=== PATIENT | male | born 1970 | race Caucasian/White ===

== ENCOUNTER 2019-02-04 12:50 | Emergency (ER) | payer MEDICARE ==
[~2019-02-04] VITALS: Ht 185.4 cm; Wt 90.7 kg
[~2019-02-04 12:50] MED LIST: ADULT LOW DOSE81 MG PO; ASPIRIN325; CYMBALTA60 MG PO; DOLOPHINE HCL5 MG PO; LIORESAL 10 MG10 MG PO; LISINOPRIL2.5 MG PO; LISINOPRIL5 MG PO; NEURONTIN600 MG PO; PERCOCET 5-3251 EACH PO; SIMVASTATIN20 MG PO; TRAMADOL 50 MG50 MG PO; [UNRECOGNIZED DRUG - CODE] PO
[2019-02-04] MEDS ORDERED: KEFLEX500 M1 PO (13:50)
[2019-02-04 14:01] VITALS: BP 180/80
== END 2019-02-04 14:03 | disposition home or self-care (01) ==
LOC: M.ERS 12:50
DX: S61.412A Laceration without foreign body of left hand, initial encounter (principal); I10 Essential (primary) hypertension; F17.210 Nicotine dependence, cigarettes, uncomplicated; Z90.49 Acquired absence of other specified parts of digestive tract; Z86.73 Personal history of transient ischemic attack (TIA), and cerebral infarction without residual deficits; Z88.5 Allergy status to narcotic agent; Z88.6 Allergy status to analgesic agent; W26.8XXA Contact with other sharp object(s), not elsewhere classified, initial encounter; Y93.89 Activity, other specified; Y92.89 Other specified places as the place of occurrence of the external cause; Y99.0 Civilian activity done for income or pay

== ENCOUNTER 2019-02-28 09:49 | Inpatient (IN) | payer MEDICARE ==
[~2019-02-28] VITALS: Ht 185.4 cm; Wt 97.1 kg
[2019-02-28] VITALS (33 sets, daily range): BP systolic 106–194; BP diastolic 71–154
[~2019-02-28 09:49] MED LIST changes: +KEFLEX500 M1 PO
[2019-02-28] MEDS ORDERED: NOHOMEMEDICATIONS (09:59)
[2019-02-28 10:19] LABS: ABSOLUTE BASOPHILS 0.1 thou/uL (0.0-0.2); ABSOLUTE EOSINOPHILS 0.2 thou/uL (0.0-0.7); ABSOLUTE LYMPHOCYTES 1.1 thou/uL (0.8-5.3); ABSOLUTE MONOCYTES 0.7 thou/uL (0.0-1.2); ABSOLUTE NEUTROPHILS 7.8 thou/uL (1.6-8.1); BASOPHILS 0.6 %; EOSINOPHILS 2.3 %; HEMATOCRIT 42.5 % (42.0-52.0); HEMOGLOBIN 14.4 gm/dL (14.0-18.0); LYMPHOCYTES 10.7 %; MCH 32.2 pg (26.0-34.0); MCHC 33.8 g/dL (28.0-37.0); MCV 95.3 fL (80.0-100.0); MONOCYTES 7.3 %; MPV 9.5 fl. (7.2-11.1); NUCLEATED RBCS 0 /100WBC; PLATELET COUNT* 245 thou/uL (150-400); POLYS 79.1 %; RBC 4.46 mil/uL (4.50-6.00); RDW-CV 13.8 % (10.5-14.5); WBC 9.8 thou/uL (4.0-11.0)
[2019-02-28 10:31] LABS: CREATININE 1.3 mg/dL (0.6-1.3); POTASSIUM 3.8 mmol/L (3.5-5.1)
[2019-02-28 10:34] LABS: APTT 26.1 Seconds (25.0-31.3); PROTIME 10.4 Seconds (9.20-11.50)
[2019-02-28 10:46] LABS: ALBUMIN 3.6 g/dL (3.4-5.0); TOTAL BILIRUBIN 0.8 mg/dL (<0.1-1.0); TOTAL PROTEIN 6.9 g/dL (6.4-8.2); TROPONIN-I LEVEL 0.1 ng/mL (<0.06)
[2019-02-28 11:52] LABS: BE -0.3 mmol/L (-2 to +3); PCO2 39.4 mmHg (35.0-45.0); PO2 60.4 mmHg (75.0-100.0); pH 7.406 (7.340-7.450)
[2019-02-28 16:40] LABS: AMP/METHAMP POSITIVE (Negative); BARBITURATES Negative (Negative); BENZODIAZEPINES Negative (Negative); COCAINE Negative (Negative); METHADONE Negative (Negative); OPIATES Negative (Negative); PCP Negative (Negative); THC POSITIVE (Negative)
[2019-02-28 20:39] LABS: BE 2.1 mmol/L (-2 to +3); PO2 72.3 mmHg (75.0-100.0)
[2019-03-01] VITALS (46 sets, daily range): BP systolic 85–138; BP diastolic 51–108
[2019-03-01 03:43] LABS: HEMATOCRIT 42.9 % (42.0-52.0); HEMOGLOBIN 14.1 gm/dL (14.0-18.0); MCH 31.5 pg (26.0-34.0); MCV 95.6 fL (80.0-100.0); MPV 9.8 fl. (7.2-11.1); RBC 4.49 mil/uL (4.50-6.00); WBC 13.1 thou/uL (4.0-11.0)
[2019-03-01 03:57] LABS: ALBUMIN 3.1 g/dL (3.4-5.0); CALCIUM 8.1 mg/dL (8.5-10.1); CREATININE 1.3 mg/dL (0.6-1.3); POTASSIUM 3.7 mmol/L (3.5-5.1); TOTAL BILIRUBIN 0.9 mg/dL (<0.1-1.0); TOTAL PROTEIN 6.4 g/dL (6.4-8.2)
[2019-03-01 06:17] LABS: PO2 65.6 mmHg (75.0-100.0); pH 7.449 (7.340-7.450)
--- NOTE | 2019-03-01 08:26 | CON ---
[facility] [address] [place] [address] CONSULTATION Name: JOEY VALLE Room: [address] IN .R.#: [id number] Admission: 02/28/19 Attend Phys: Alyse Baeza Discharge: Date of : 68 Report #: [id number] THIS REPORT FOR: //name// CC: MEE physician/PCP Tera Cabezas DATE OF SERVICE: 02/28/2019 CARDIOLOGY CONSULTATION HISTORY OF PRESENT ILLNESS: The patient is a 49-year-old single white male who I was asked to see in the Emergency Room today after he complained of being short of breath. The patient has a history of hypertension but has not taken his medications for the past year. He is not very active at this time and is on disability because of previous stroke. He lives in [place], [place], by himself. Recently, he has had increasing shortness of breath and a cough. Denied any chest pain, palpitation, syncope or edema. He was at a laundromat earlier today and he became more short of breath. Paramedics were called. He was brought here to [facility] by ambulance. I was asked to see him for further evaluation and treatment. PAST MEDICAL HISTORY: Significant for cholecystectomy. He has a history of hypertension. MEDICATIONS: Currently he is on no medications. ALLERGIES: HE HAS A PREVIOUS INTOLERANCE TO HYDROCODONE. SOCIAL HISTORY: Smokes half a pack of cigarettes a day. No alcohol abuse. He is from his . REVIEW OF SYSTEMS: He apparently has had a previous stroke in 2008 with residual right-sided weakness. He has no history of peptic ulcer disease, liver disease, kidney disease, cancer, psychiatric illness, chronic skin condition. PHYSICAL EXAMINATION: GENERAL: Revealed a middle-aged male, appeared in moderate respiratory distress. VITAL SIGNS: He had a blood pressure of 170/110. His pulse was 100. He is afebrile. HEENT: He was anicteric. Conjunctivae pink. Mucous membranes moist. NECK: Neck veins appear mildly distended. Neck was supple. CHEST: Reveals coarse breath sounds bilaterally. CARDIOVASCULAR: Regular rate and rhythm. No significant murmur. ABDOMEN: Soft. EXTREMITIES: Had no pitting edema. Posterior tibial pulse 2+ [place] [address] CONSULTATION Name: JOEY VALLE Room: [address]#: [id number] Admission: 02/28/19 Attend Phys: Alyse Baeza Discharge: Date of : 68 Report #: [id number] SKIN: Warm and dry. NEUROLOGIC: Nonfocal. RADIOLOGICAL DATA: His ECG on admission shows a sinus tachycardia, biatrial enlargement, left ventricular hypertrophy, repolarization changes. Workup in the Emergency Room today, he had portable chest x-ray that showed cardiomegaly, vascular congestion, basilar infiltrates. No pleural effusion. LABORATORY WORK: Sodium 142, BUN 21, creatinine 1.3, glucose 117. Liver function studies are normal. Troponin 0.1. BNP 4068. White blood cell count 9.8, hemoglobin 14.4. IMPRESSION AND RECOMMENDATIONS: 1. Pulmonary edema. Recommend Lasix. Apparently, the patient is going to require intubation. I would check echocardiogram. 2. Left ventricular hypertrophy. The patient has not been taking medications. 3. Chronic obstructive pulmonary disease. 4. Tobacco abuse. 5. Previous stroke with residual right-sided weakness. <ELECTRONICALLY SIGNED> By: Angel Bustamante MD, FACC 03/01/19 0826 1128 [id number] Bustamante MD, FACC /nt
--- NOTE | 2019-03-01 15:49 | 2DMMODE ---
[place] [address] 2 D/M-MODE ECHOCARDIOGRAM Name: JOEY VALLE Room: 002[facility] IN [facility]#: [id number] Admission: 02/28/19 Attend Phys: Tera Cabezas Discharge: Date of : 68 Date of Service: 03/01/19 1549 Report #: [id number] THIS REPORT FOR: //name// APPROVED REPORT Study performed: 03/01/2019 10:29:39 EXAM: Comprehensive 2D, Doppler, and color-flow Echocardiogram Patient Location: In-Patient Room #: 002 Status: routine BSA: 2.11 HR: 94 bpm BP: 119/81 mmHg Rhythm: NSR Other Information Study Quality: Good Indications Cardiomegaly 2D Dimensions IVSd: 16.45 (7-11mm) LVOT Diam: 23.85 (18-24mm) LVDd: 62.12 mm PWd: 14.66 (7-11mm) Ascending Ao: 41.06 (22-36mm) LVDs: 57.36 (25-40mm) Aortic Root: 39.78 mm Volumes Left Atrial Volume (Systole) LA ESV Index: 39.20 mL/m2 Aortic Valve AoV Peak Nomi.: 1.14 m/s AO Peak Gr.: 5.22 mmHg LVOT Max P.87 mmHg AO Mean Gr.: 3.43 mmHg LVOT Mean P.46 mmHg LVOT Max V: 0.85 m/s AO V2 VTI: 17.38 cm LVOT Mean V: 0.55 m/s OLEG (VTI): 3.86 cm2 LVOT V1 VTI: 15.01 cm Mitral Valve E/A Ratio: 1.69 MV Decel. Time: 97.65 ms MV E Max Nomi.: 1.00 m/[place] [address] 2 D/M-MODE ECHOCARDIOGRAM Name: JOEY VALLE Room: [address] IN ..#: [id number] Admission: 02/28/19 Attend Phys: Tera Cabezas Discharge: Date of : 68 Date of Service: 03/01/19 1549 Report #: [id number] PHT: 28.32 ms MVA (PHT): 7.77 cm2 TDI E/Lateral E': 20.00 E/Medial E': 20.00 Medial E' Nomi.: 0.05 m/s Lateral E' Nomi.: 0.05 m/s Left Ventricle Left ventricle is moderately dilated. There is severe global hypokinesis of the left ventricle. Moderate concentric left ventricular hypertrophy. Left ventricular systolic function is severely decreased. LVEF is 25-30%. Transmitral Doppler flow pattern suggests impaired LV relaxation. Right Ventricle Right ventricle is mildly dilated. The right ventricular systolic function is normal. Atria Left atrium is mildly dilated. Right atrium is mildly dilated. Aortic Valve The aortic valve is normal in structure. Trace aortic regurgitation. There is no aortic valvular stenosis. Mitral Valve The mitral valve is normal in structure. Trace mitral regurgitation. No evidence of mitral valve stenosis. Tricuspid Valve The tricuspid valve is normal in structure. Unable to assess PA pressure. Trace tricuspid regurgitation. Pulmonic Valve The pulmonary valve is normal in structure. There is no pulmonic valvular regurgitation. Great Vessels Aortic root is mildly dilated. IVC is normal in size and collapses >50% with inspiration. Pericardium There is no pericardial effusion. [place] [address] 2 D/M-MODE ECHOCARDIOGRAM Name: JOEY VALLE Room: [address] IN [facility]#: [id number] Admission: 02/28/19 Attend Phys: Tera Cabezas Discharge: Date of : 68 Date of Service: 03/01/19 1549 Report #: [id number] <Conclusion> Left ventricle is moderately dilated. Moderate concentric left ventricular hypertrophy. Left ventricular systolic function is severely decreased. LVEF is 25-30%. Transmitral Doppler flow pattern suggests impaired LV relaxation. There is severe global hypokinesis of the left ventricle. Right ventricle is mildly dilated. Left atrium is mildly dilated. Right atrium is mildly dilated. Trace aortic regurgitation. Trace mitral regurgitation. Trace tricuspid regurgitation. Left pleural effusion. Aortic root is mildly dilated. <ELECTRONICALLY SIGNED> By: Gustavo Shaver MD, FACC 03/01/19 1549 1549 1549 Gustavo Shaver MD, FACC /INF
--- NOTE | 2019-03-01 16:11 | EKG ---
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 03/01/19 1610 0 Joey Curtis MD, FACC /EPI
--- NOTE | 2019-03-01 16:22 | EKG ---
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1970 Requested By: Tera Cabezas Order Number: [id number] MD: Joey Curtis Measurements Intervals [place] Rate: 89 P: 58 [place]: 142 QRS: 41 QRSD: 108 T: 138 QT: 400 QTc: 487 Interpretive Statements Sinus rhythm Left atrial enlargement LVH with secondary repolarization abnormality Borderline prolonged QT interval No previous ECG available for comparison Electronically Signed On 03-01-2019 16:22:32 CDT by Joey Curtis [email or web address] <ELECTRONICALLY SIGNED> By: Joey Curtis MD, [facility] 03/01/19 1622 845 5 Joey Curtis MD, FACC /EPI
[2019-03-01 17:06] LABS: BF RBC 12722 /mm3; TOTAL CELL COUNT 1012 /mm3
[2019-03-01 17:55] LABS: CLARITY SLIGHTLY HAZY; TOTAL VOLUME 1150 ml
[2019-03-01 18:01] LABS: BF EOSINOPHILS 2 %; BF LYMPHOCYTES 77 %; BF MONOCYTES 13 %; BF POLYS 8 %; BF TISSUE 7 /100 WBC; SOURCE THORACENTESIS
[2019-03-02] VITALS (34 sets, daily range): BP systolic 101–143; BP diastolic 68–105
[2019-03-02 04:08] LABS: HEMATOCRIT 42.2 % (42.0-52.0); MCH 31.5 pg (26.0-34.0); MCHC 33.3 g/dL (28.0-37.0); MCV 94.8 fL (80.0-100.0); MPV 9.8 fl. (7.2-11.1); NUCLEATED RBCS 0 /100WBC; PLATELET COUNT* 255 thou/uL (150-400); RBC 4.45 mil/uL (4.50-6.00); RDW-CV 14.3 % (10.5-14.5); WBC 21.1 thou/uL (4.0-11.0)
[2019-03-02 04:23] LABS: CALCIUM 7.4 mg/dL (8.5-10.1); CREATININE 2.1 mg/dL (0.6-1.3); POTASSIUM 4.2 mmol/L (3.5-5.1); TOTAL BILIRUBIN 0.9 mg/dL (<0.1-1.0); TOTAL PROTEIN 6.2 g/dL (6.4-8.2)
[2019-03-02 05:36] LABS: ABSOLUTE LYMPHOCYTES 0.6 thou/uL (0.8-5.3); ABSOLUTE MONOCYTES 0.2 thou/uL (0.0-1.2); ABSOLUTE NEUTROPHILS 20.3 thou/uL (1.6-8.1); PLATELET ESTIMATE ADEQUATE
[2019-03-02 05:37] LABS: ANISOCYTOSIS 1+; POIKILOCYTOSIS 1+
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
[2019-03-02 15:33] LABS: BE 0.2 mmol/L (-2 to +3); PCO2 33.4 mmHg (35.0-45.0); PO2 99.6 mmHg (75.0-100.0); pH 7.461 (7.340-7.450)
[2019-03-03] VITALS (14 sets, daily range): BP systolic 114–142; BP diastolic 70–99
[2019-03-03 04:42] LABS: ABSOLUTE LYMPHOCYTES 0.5 thou/uL (0.8-5.3); ABSOLUTE MONOCYTES 1.3 thou/uL (0.0-1.2); ABSOLUTE NEUTROPHILS 21.1 thou/uL (1.6-8.1); BASOPHILS 0.1 %; HEMATOCRIT 40.1 % (42.0-52.0); HEMOGLOBIN 13.2 gm/dL (14.0-18.0); LYMPHOCYTES 2.2 %; MCH 31.6 pg (26.0-34.0); MCV 95.9 fL (80.0-100.0); MONOCYTES 5.8 %; MPV 10.6 fl. (7.2-11.1); NUCLEATED RBCS 0 /100WBC; PLATELET COUNT* 221 thou/uL (150-400); POLYS 91.9 %; RBC 4.18 mil/uL (4.50-6.00); RDW-CV 14.4 % (10.5-14.5); WBC 22.9 thou/uL (4.0-11.0)
[2019-03-03 05:02] LABS: ALBUMIN 2.8 g/dL (3.4-5.0); CALCIUM 7.4 mg/dL (8.5-10.1); CREATININE 1.7 mg/dL (0.6-1.3); TOTAL BILIRUBIN 0.8 mg/dL (<0.1-1.0); TOTAL PROTEIN 5.8 g/dL (6.4-8.2)
[2019-03-03 07:12] LABS: URINE BILIRUBIN NEGATIVE (Negative); URINE BLOOD NEGATIVE (Negative); URINE CLARITY CLEAR; URINE COLOR DARK YELLOW; URINE GLUCOSE-RANDOM NEGATIVE (Negative); URINE KETONES NEGATIVE (Negative); URINE LEUKOCYTES NEGATIVE (Negative); URINE NITRITE NEGATIVE (Negative); URINE PROTEIN NEGATIVE (Negative); URINE SPECIFIC GRAVITY 1.025 (1.005-1.030); URINE UROBILINOGEN 0.2 E.U./dl (0.2-1.0)
[2019-03-03 15:10] LABS: BODY FLUID LDH 122 IU/L (()); BODY FLUID PROTEIN 1.7 g/dL (())
[2019-03-04 00:08] VITALS: BP 129/97
[2019-03-04 04:00] VITALS: BP 123/90
[2019-03-04 04:08] LABS: ABSOLUTE LYMPHOCYTES 2.2 thou/uL (0.8-5.3); ABSOLUTE MONOCYTES 1.6 thou/uL (0.0-1.2); ABSOLUTE NEUTROPHILS 11.5 thou/uL (1.6-8.1); BASOPHILS 0.3 %; EOSINOPHILS 0.1 %; HEMATOCRIT 40.6 % (42.0-52.0); HEMOGLOBIN 13.4 gm/dL (14.0-18.0); LYMPHOCYTES 14.1 %; MCH 31.7 pg (26.0-34.0); MCV 95.9 fL (80.0-100.0); MONOCYTES 10.7 %; MPV 9.7 fl. (7.2-11.1); NUCLEATED RBCS 0 /100WBC; PLATELET COUNT* 182 thou/uL (150-400); POLYS 74.8 %; RBC 4.23 mil/uL (4.50-6.00); RDW-CV 13.8 % (10.5-14.5); WBC 15.4 thou/uL (4.0-11.0)
[2019-03-04 04:32] LABS: ANION GAP 5 mmol/L (7-16); BUN 48 mg/dL (7-18); CALCIUM 7.8 mg/dL (8.5-10.1); CHLORIDE 105 mmol/L (98-107); CHOLESTEROL 171 mg/dL (<200); CO2 31 mmol/L (21-32); CREATININE 1.3 mg/dL (0.6-1.3); GLUCOSE 89 mg/dL (70-99); HDL CHOLESTEROL 32 mg/dL (>40); LDL CHOLESTEROL 115 mg/dL (<100); POTASSIUM 3.7 mmol/L (3.5-5.1); SODIUM 141 mmol/L (136-145); TC:HDL 5.3 Ratio (Not establshd); TRIGLYCERIDE 120 mg/dL (<150); VLDL 24 mg/dL (<40)
[2019-03-04 04:35] LABS: SERUM ASSESSMENT Clear
[2019-03-04 08:00] VITALS: BP 126/93
--- NOTE | 2019-03-04 08:07 | PATH ---
[address] [address] PATHOLOGY RPT PROCEDURE Name: JOEY VALLE Room: [address] IN [facility]#: [id number] Admission: 02/28/19 Date of : 68 Discharge: Report #: [id number] Path Case #: [id number] Note [facility] Accession Number: [id number] TESTS RESULT FLAG UNITS REF RANGE LAB Clinician Provided Cytology Information No. of containers..01 Other (Miscellaneous) Source: LT PLEURAL FLUID Clinician ICD10: 01 J96.00 DIAGNOSIS: LT PLEURAL FLUID NEGATIVE FOR MALIGNANT CELLS. ABUNDANT REACTIVE MESOTHELIAL CELLS AND FEW INFLAMMATORY CELLS. THIS INTERPRETATION INCLUDES EVALUATION OF A CELL BLOCK. Signed out by: Traci Coulter MD, Pathologist NPI- [id number] Performed by: Jonel Coates, [employer] [place] ([facility]) Gross description: 01 45 ML, ORANGE, CLOUDY /LCS FLAG LEGEND: L-Low Normal,H-High Normal,LL-Alert Low,HH-Alert High <-Panic Low,>-Panic High,A-Abnormal,AA-Critical Abnormal Performed at: [address] [place] [address] Jf Motley MD, [address] [place] [id number] Aleks Coulter MD, Specimen Comment: A courtesy copy of this report has been sent to Specimen Comment: [phone], . Specimen Comment: Report sent to / DR YU Performed at: [address], [place], [place] [id number] MD Jf Motley MD Phone: [phone]
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
[2019-03-04 12:00] VITALS: BP 136/99
[2019-03-04 16:00] VITALS: BP 157/116
--- NOTE | 2019-03-04 17:15 | CARDNUC ---
[place] [address] CARDIAC NUCLEAR IMAGING REPORT Name: JOEY VALLE Room: [address] IN [facility]#: [id number] Admission: 02/28/19 Attend Phys: Tera Cabezas Discharge: Date of : 68 Date of Service: 03/04/19 1715 Report #: [id number] THIS REPORT FOR: //name// APPROVED REPORT Study performed: 03/03/2019 15:21:00 Indication: Dyspnea Patient Location: In-Patient Room #: icu Stress Tech: Bianka Ortega Stress Nurse: Priscilla Abernathy RN Ht: 6 ft 1 in Wt: 208 lbs BSA: 2.19 m2 BMI: 27.43 Medical History Medical History: hypertension, cva Allergies: hydrocodone, acetominophen Cardiac Risk Factors: age, hypertension, tobacco, family hx Exercise History: Sedentary Meds Held (24 hrs): metoprolol Resting Data Rest SPECT myocardial perfusion imaging was performed in supine position 30 minutes following the intravenous injection of 11.2 mCi of Tc-99m Sestamibi. Time of rest injection: 11:30 The images were gated to evaluate regional wall motion and calculate left ventricular ejection fraction. Administration Route: IV Administration Site: Other Pharmacologic Stress Pharmacologic stress test was performed by injecting Regadenoson 0.4 mg IV push over 10-15 seconds immediately followed by the intravenous injection of 33.3 mCi of Tc-99m Sestamibi. Time of stress injection: 1335 Administration Route: IV Administration Site: Other Heart Rate at time of stress injection: 113 bpm. Gated Stress SPECT was performed 40 minutes after stress injection. The images were gated to evaluate regional wall motion and calculate left [place] [address] CARDIAC NUCLEAR IMAGING REPORT Name: JOEY VALLE Room: [address]#: [id number] Admission: 02/28/19 Attend Phys: Tera Cabezas Discharge: Date of : 68 Date of Service: 03/04/19 1715 Report #: [id number] Stress Test Details Stress Test: Pharmacologic stress testing performed using 0.4 mg of regadenoson per 5 mL given IV over 10 seconds. Reason for pharmacologic stress test: physical limitation. HR Max Heart Rate (APMHR): 170 bpm Resting HR: 93 bpm Target HR (85% APMHR): 144 bpm Max HR Achieved: 113 bpm % of APMHR: 66 Recovery HR: 103 bpm BP Resting BP: 156/103 mmHg Max BP: 176/106 mmHg Recovery BP: 165/114 mmHg ECG Resting ECG: Sinus Rhythm, LVH with repolarization changes Stress ECG: Sinus Rhythm, LVH with repolarization changes ST Change: None Arrhythmia: None Recovery ECG: Sinus Rhythm, LVH with repolarization changes Recovery ST Change: None Recovery Arrhythmia: None Clinical Reason for Termination: Completed protocol The patient tolerated Lexiscan infusion without significant cardiac symptoms. Stress ECG Conclusion The baseline 12-lead EKG shows left particular hypertrophy with repolarization abnormalities. EKGs obtained during and post Lexiscan infusion show sinus rhythm with no significant ST or T wave changes when compared to baseline. There were no stress-induced arrhythmias. Study Quality Study: Good Artifact: Moderate Diaphragmatic artifact Study Data At rest, the left ventricular ejection fraction was 20%.. [place] [address] CARDIAC NUCLEAR IMAGING REPORT Name: JOEY VALLE Room: [address] IN [facility]#: [id number] Admission: 02/28/19 Attend Phys: Tera Cabezas Discharge: Date of : 68 Date of Service: 03/04/19 1715 Report #: [id number] Post stress, the left ventricular ejection was 20%.. TID = 1.02. Perfusion Perfusion images show a large defect of the inferior wall on both rest and stress images. No reversible defects are identified. Wall Motion There is severe global hypokinesis. The left ventricle appears dilated. Nuclear Conclusion ECG Findings: non-diagnostic Clinical Findings: negative for ischemia Nuclear Findings: negative for ischemia Exercise Capacity: not assessed Left Ventricular Function: abnormal Risk Study: high Perfusion images show a fixed defect in the inferior wall. This could either be due to diaphragmatic attenuation artifact or prior inferior infarct. Based on the lack of Q waves on EKG I suspect this defect is related to diaphragmatic attenuation. These findings are consistent with a cardiomyopathy likely nonischemic in origin. This is a high risk study based on severe LV systolic dysfunction. <Conclusion> The baseline 12-lead EKG shows left particular hypertrophy with repolarization abnormalities. EKGs obtained during and post Lexiscan infusion show sinus rhythm with no significant ST or T wave changes when compared to baseline. There were no stress-induced arrhythmias. <ELECTRONICALLY SIGNED> By: Gustavo Shaver MD, FACC 03/04/19 1715 171 1715 Gustavo Shaver MD, FACC /INF
[2019-03-04 20:00] VITALS: BP 124/84
[2019-03-05 04:00] VITALS: BP 129/92
[2019-03-05 04:08] LABS: ABSOLUTE EOSINOPHILS 0.1 thou/uL (0.0-0.7); ABSOLUTE LYMPHOCYTES 2.1 thou/uL (0.8-5.3); ABSOLUTE MONOCYTES 1.4 thou/uL (0.0-1.2); ABSOLUTE NEUTROPHILS 9.3 thou/uL (1.6-8.1); BASOPHILS 0.2 %; EOSINOPHILS 1.1 %; HEMATOCRIT 40.4 % (42.0-52.0); HEMOGLOBIN 13.5 gm/dL (14.0-18.0); LYMPHOCYTES 16.2 %; MCH 31.9 pg (26.0-34.0); MCHC 33.4 g/dL (28.0-37.0); MCV 95.6 fL (80.0-100.0); MPV 10.6 fl. (7.2-11.1); NUCLEATED RBCS 0 /100WBC; PLATELET COUNT* 183 thou/uL (150-400); POLYS 71.5 %; RBC 4.23 mil/uL (4.50-6.00); RDW-CV 13.9 % (10.5-14.5); WBC 13.1 thou/uL (4.0-11.0)
[2019-03-05 04:28] LABS: CALCIUM 7.6 mg/dL (8.5-10.1); CREATININE 1.1 mg/dL (0.6-1.3); POTASSIUM 3.7 mmol/L (3.5-5.1)
[2019-03-05] MEDS ORDERED: AUGMENTIN 875-1 EACH PO (12:24)
[2019-03-05] MEDS ORDERED: CARVEDILOL12.5 MG PO (12:26)
[2019-03-05] MEDS ORDERED: SPIRONOLACTONE25 M1 PO (12:26)
[2019-03-05] MEDS ORDERED: COZAAR 25 MG TA25 MG PO (12:28)
[2019-03-05] MEDS ORDERED: LASIX 20 MG TAB20 MG PO (12:29)
[2019-03-06 11:50] LABS: SOURCE PLEURAL
== END 2019-03-05 13:40 | disposition home or self-care (01) | DRG 208 ==
LOC: M.ERS 09:49 → M.ICU 12:07 → M.TBA-ER 12:07 → M.ICU 12:50 → M.2W 03-05 05:47
PROVIDERS: Family Medicine; Internal Medicine; Internal Medicine Nephrology; Internal Medicine Pulmonary Disease; ADMIT Internal Medicine
PROC: 5A1945Z Respiratory Ventilation, 24-96 Consecutive Hours (ICD-10-PCS; principal; 2019-02-28)
PROC: 02HV33Z Insertion of Infusion Device into Superior Vena Cava, Percutaneous Approach (ICD-10-PCS; principal; 2019-02-28)
PROC: 0BH17EZ Insertion of Endotracheal Airway into Trachea, Via Natural or Artificial Opening (ICD-10-PCS; principal; 2019-02-28)
PROC: 0W9B3ZZ Drainage of Left Pleural Cavity, Percutaneous Approach (ICD-10-PCS; 2019-03-02)
DX: J96.01 Acute respiratory failure with hypoxia (principal); J69.0 Pneumonitis due to inhalation of food and vomit; I50.43 Acute on chronic combined systolic (congestive) and diastolic (congestive) heart failure; J90 Pleural effusion, not elsewhere classified; I69.351 Hemiplegia and hemiparesis following cerebral infarction affecting right dominant side; N17.9 Acute kidney failure, unspecified; I42.9 Cardiomyopathy, unspecified; J98.11 Atelectasis; K59.00 Constipation, unspecified; I11.0 Hypertensive heart disease with heart failure; J44.9 Chronic obstructive pulmonary disease, unspecified; R79.89 Other specified abnormal findings of blood chemistry; F12.10 Cannabis abuse, uncomplicated; F15.10 Other stimulant abuse, uncomplicated; F17.210 Nicotine dependence, cigarettes, uncomplicated; Z90.49 Acquired absence of other specified parts of digestive tract; Z87.828 Personal history of other (healed) physical injury and trauma; Z79.899 Other long term (current) drug therapy; Z88.8 Allergy status to other drugs, medicaments and biological substances

== ENCOUNTER 2019-06-15 14:03 | Inpatient (IN) | payer MEDICARE ==
[~2019-06-15] VITALS: Ht 182.9 cm; Wt 82.5 kg
[2019-06-15] VITALS (9 sets, daily range): BP systolic 146–205; BP diastolic 87–127
[~2019-06-15 14:03] MED LIST changes: +AUGMENTIN 875-1 EACH PO; +CARVEDILOL12.5 MG PO; +COZAAR 25 MG TA25 MG PO; +LASIX 20 MG TAB20 MG PO; +NOHOMEMEDICATIONS; +SPIRONOLACTONE25 M1 PO
[2019-06-15 14:57] LABS: HEMATOCRIT 42.3 % (42.0-52.0); HEMOGLOBIN 14.4 gm/dL (14.0-18.0); MCH 31.6 pg (26.0-34.0); MCV 93.1 fL (80.0-100.0); MPV 9.6 fl. (7.2-11.1); RBC 4.55 mil/uL (4.50-6.00); RDW-CV 14.4 % (10.5-14.5); WBC 7.7 thou/uL (4.0-11.0)
[2019-06-15 15:04] LABS: CALCIUM 8.3 mg/dL (8.5-10.1); CREATININE 1.1 mg/dL (0.6-1.3); POTASSIUM 3.3 mmol/L (3.5-5.1)
[2019-06-15 15:09] LABS: ALBUMIN 3.5 g/dL (3.4-5.0); TOTAL BILIRUBIN 0.4 mg/dL (<0.1-1.0); TOTAL PROTEIN 6.9 g/dL (6.4-8.2)
[2019-06-15 15:10] LABS: APTT 26.4 Seconds (25.0-31.3); INR 1.1; PROTIME 11.1 Seconds (9.20-11.50)
--- NOTE | 2019-06-15 15:29 | EKG ---
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 <ELECTRONICALLY SIGNED> By: Joey Curtis MD, FAC 06/15/19 1528 1446 1446 Joey Curtis MD, [facility] /EPI
--- NOTE | 2019-06-15 15:31 | NUR ---
REPORT GIVEN TO JOEY CHAPA, PT WILL BE TAKEN TO ICU 7, VSS, BELONGINGS WITH PT, FAMILY AT BEDSIDE, ALL INTERVENTIONS, MEDICATIONS AND VITAL SIGNS DOCUMENTED ON STROKE SHEET.
[2019-06-15 16:42] LABS: CALCIUM 8.9 mg/dL (8.5-10.1); CREATININE 1.2 mg/dL (0.6-1.3); MAGNESIUM 1.9 mg/dL (1.8-2.4); POTASSIUM 3.3 mmol/L (3.5-5.1)
[2019-06-15 18:20] LABS: AMP/METHAMP Negative (Negative); BARBITURATES Negative (Negative); BENZODIAZEPINES Negative (Negative); COCAINE Negative (Negative); METHADONE Negative (Negative); OPIATES Negative (Negative); PCP Negative (Negative); THC POSITIVE (Negative)
--- NOTE | 2019-06-15 19:07 | NUR ---
PT PASSED BEDSIDE SWALLOW EVALUATION, STARTED ON HEART HEALTHY DIET. PT REFUSES SCDS.
[2019-06-16] VITALS (15 sets, daily range): BP systolic 137–170; BP diastolic 81–118
--- NOTE | 2019-06-16 01:47 | NUR ---
RECEIVED REPORT AND ASSUMED CARE AT 1900. BP ELEVATED, OK PER NEURO. OTHERWISE VSS. ICU MONITORING IN PLACE. NIH COMPLETED =10. ASSESSMENT COMPLETED CHARTED. PT REPORTS HEADACHE, PRN MEDICATION PER ORDERS. BED LOCKED IN LOWEST POSITION, CALL LIGHT WITHIN REACH. DISCUSSED PLAN OF CARE WITH PT, VERBALIZED UNDERSTANDING.
[2019-06-16 03:42] LABS: ABSOLUTE BASOPHILS 0.1 thou/uL (0.0-0.2); ABSOLUTE EOSINOPHILS 0.4 thou/uL (0.0-0.7); ABSOLUTE LYMPHOCYTES 2.1 thou/uL (0.8-5.3); ABSOLUTE MONOCYTES 0.8 thou/uL (0.0-1.2); ABSOLUTE NEUTROPHILS 4.5 thou/uL (1.6-8.1); BASOPHILS 1.2 %; EOSINOPHILS 4.7 %; HEMOGLOBIN 13.6 gm/dL (14.0-18.0); LYMPHOCYTES 27.3 %; MCH 31.3 pg (26.0-34.0); MCV 92.1 fL (80.0-100.0); MONOCYTES 9.8 %; MPV 9.5 fl. (7.2-11.1); NUCLEATED RBCS 0 /100WBC; PLATELET COUNT* 221 thou/uL (150-400); RBC 4.34 mil/uL (4.50-6.00); WBC 7.9 thou/uL (4.0-11.0)
[2019-06-16 03:51] LABS: CALCIUM 8.6 mg/dL (8.5-10.1); CREATININE 1.1 mg/dL (0.6-1.3); MAGNESIUM 1.7 mg/dL (1.8-2.4); POTASSIUM 3.4 mmol/L (3.5-5.1)
--- NOTE | 2019-06-16 10:20 | NUR ---
INT. ROUNDS: PT ADMITTED WITH NEW CVA, HAD JUST RETURNED FROM [place]. MET JAYDON PT. STATES HE LIVES IN [place] BUT ONLY UNTIL THURSDAY 'MONEY RAN OUT.' PT HAD LIVED IN A TRAILER IN [place] WITH HIS STEP SON PRIOR LEFT THERE. STATED THERE WAS A SITUATION THAT PROMPTED HIM TO LEAVE, NOT ABLE TO RETURN. PT HAS FAMILY BUT STATES HASN'T BEEN IN TOUCH WITH ANYONE FOR >10YRS. DENIES HAVING A PLACE TO GO OTHER THAN '[place]RE[place] AFTER THURSDAY. PT USES [facility]. HAS NOT BEEN TO SNF OR HAD HH IN PAST. HAVE ASKED [facility] TO TALK WITH PT RE: POSSIBLE MEDICAID. DISCUSSED WITH PT POSSIBLE SNF PLACEMENT SHORT TERM IF QUALIFIES AN OPTION. WILL FOLLOW AND AWAIT ASSESSMENTS
[2019-06-16 11:07] LABS: LDL (DIRECT) CHOL 115 mg/dL (0-99)
--- NOTE | 2019-06-16 14:42 | NUR ---
REPORT GIVEN TO DIVYA CHAPA, PT TO TRANSFER TO 226
--- NOTE | 2019-06-16 16:36 | 2DMMODE ---
[place] [address] 2 D/M-MODE ECHOCARDIOGRAM Name: JOEY VALLE Room: [address] IN [facility]#: [id number] Admission: 06/15/19 Attend Phys: Prashanth Owen MD Discharge: Date of : 68 Date of Service: 06/16/19 1636 Report #: [id number] THIS REPORT FOR: //name// APPROVED REPORT Study performed: 06/16/2019 11:31:09 EXAM: Comprehensive 2D, Doppler, and color-flow Echocardiogram Patient Location: In-Patient Room #: 007 Status: routine BSA: 2.13 HR: 66 bpm BP: 147/95 mmHg Rhythm: NSR Other Information Study Quality: Good Indications CVA/TIA Echo Enhancing Agent Indication: Rule out Shunt Agent(s) / Amount(s) Used: Agitated Saline 10 cc 2D Dimensions IVSd: 14.00 (7-11mm) LVOT Diam: 21.03 (18-24mm) LVDd: 68.34 mm PWd: 13.18 (7-11mm) Ascending Ao: 41.25 (22-36mm) LVDs: 57.37 (25-40mm) Aortic Root: 38.67 mm Volumes Left Atrial Volume (Systole) LA ESV Index: 45.30 mL/m2 Aortic Valve AoV Peak Nomi.: 1.36 m/s AO Peak Gr.: 7.41 mmHg LVOT Max P.20 mmHg AO Mean Gr.: 4.60 mmHg LVOT Mean P.47 mmHg LVOT Max V: 1.14 m/s AO V2 VTI: 23.13 cm LVOT Mean V: 0.71 m/s OLEG (VTI): 3.03 cm2 LVOT V1 VTI: 20.14 [place] [address] 2 D/M-MODE ECHOCARDIOGRAM Name: JOEY VALLE Room: [address] IN ..#: [id number] Admission: 06/15/19 Attend Phys: Prashanth Owen MD Discharge: Date of : 68 Date of Service: 06/16/19 1636 Report #: [id number] Mitral Valve E/A Ratio: 1.56 MV Decel. Time: 240.35 ms MV E Max Nomi.: 0.97 m/s MV PHT: 69.70 ms MVA (PHT): 3.16 cm2 TDI E/Lateral E': 13.86 E/Medial E': 13.86 Medial E' Nomi.: 0.07 m/s Lateral E' Nomi.: 0.07 m/s Pulmonary Valve PV Peak Nomi.: 0.84 m/s PV Peak Gr.: 2.80 mmHg Tricuspid Valve RAP Estimate: 5.00 mmHg TR Peak Gr.: 23.17 mmHg RVSP: 28.00 mmHg PA Pressure: 28.00 mmHg Left Ventricle The left ventricle is normal size. There is global hypokinesis of the left ventricle. Mild concentric left ventricular hypertrophy. Left ventricular systolic function is severely decreased. LVEF is 20-25%. Grade IV - fixed restrictive diastolic dysfunction. Right Ventricle The right ventricle is normal size. The right ventricular systolic function is normal. Atria Left atrium is mildly dilated. Interatrial septum is intact without evidence of ASD or PFO. The right atrium size is normal. Aortic Valve The aortic valve is normal in structure. Trace aortic regurgitation. There is no aortic valvular stenosis. Mitral Valve The mitral valve is normal in structure. Mild mitral regurgitation. No evidence of mitral valve stenosis. Tricuspid Valve The tricuspid valve is normal in structure. Trace tricuspid regurgitation. No [place] [address] 2 D/M-MODE ECHOCARDIOGRAM Name: JOEY VALLE Room: [address] IN [facility]#: [id number] Admission: 06/15/19 Attend Phys: Prashanth Owen MD Discharge: Date of : 68 Date of Service: 06/16/19 1636 Report #: [id number] Pulmonic Valve The pulmonary valve is normal in structure. Trace pulmonic regurgitation. Great Vessels The aortic root is normal in size. IVC is normal in size and collapses >50% with inspiration. Pericardium There is no pericardial effusion. <Conclusion> LVEF is 20-25%. Grade IV - fixed restrictive diastolic dysfunction. The left ventricle is normal size. Mild concentric left ventricular hypertrophy. There is global hypokinesis of the left ventricle. Left ventricular systolic function is severely decreased. Trace aortic regurgitation. Mild mitral regurgitation. Trace tricuspid regurgitation. No pulmonary hypertension. Trace pulmonic regurgitation. IVC is normal in size and collapses >50% with inspiration. <ELECTRONICALLY SIGNED> By: Mohan Aquino MD, FACC 06/16/19 1636 1636 163 Mohan Aquino MD, FACC /INF
--- NOTE | 2019-06-16 19:46 | NUR ---
I ASSUMED CARE OF THE PATIENT AT 1445 AN ICU TRANSFER. HE IS UP WITH STAND BY ASSISTANCE. BED IS IN THE LOW LOCKED POSITION AND CALL LIGHT IS IN REACH. HOURLY ROUNDING WAS COMPLETED AND PATIENT NEEDS ARE MET. PAIN IS DENIED. CASE MANAGEMENT HAS BEEN CONTACTED. PATIENT LOST HIS TRAILER, THEN HIS HOTEL IN [place] AND IS NOW AT THE [facility] ON [address]. HE IS PAID UP THROUGH THURSDAY AND THEN WILL BE HOMELESS. [place] WILL COME SEE HIM ON 06/17/10. HE WAS AN ICU TRANSFER TODAY. PATIENT HAS A VERY FLAT AFFECT. NIH WAS COMPLETED. WILL CONTINUE TO MONITOR.
[2019-06-16 20:10] LABS: URINE BILIRUBIN NEGATIVE (Negative); URINE BLOOD NEGATIVE (Negative); URINE CLARITY CLEAR; URINE COLOR YELLOW; URINE GLUCOSE-RANDOM NEGATIVE (Negative); URINE KETONES NEGATIVE (Negative); URINE LEUKOCYTES NEGATIVE (Negative); URINE NITRITE NEGATIVE (Negative); URINE PROTEIN NEGATIVE (Negative); URINE SPECIFIC GRAVITY 1.025 (1.005-1.030)
[2019-06-17] VITALS: BP 150/99
[2019-06-17 04:00] VITALS: BP 155/105
[2019-06-17 04:22] LABS: CHOLESTEROL 144 mg/dL (<200); HDL CHOLESTEROL 32 mg/dL (>40); LDL CHOLESTEROL 100 mg/dL (<100); TC:HDL 4.5 Ratio (Not establshd); TRIGLYCERIDE 61 mg/dL (<150); VLDL 12 mg/dL (<40)
[2019-06-17 04:27] LABS: SERUM ASSESSMENT Clear
[2019-06-17 08:00] VITALS: BP 150/100
--- NOTE | 2019-06-17 10:23 | NUR ---
ASSUMED PT CARE AT 0800, AOX4, UP WITH ASSIST, USES URINAL. O2 SAT 90'S RA. TRACING SINUS FREDI ON TELE. PT COMPLAIN OF HEAD DISCOMFORT. PT NIH SCORE 5. STILL HAVE R SIDED WEAKNESS. AM ASSESSMENT CHARTED. MEDS GIVEN PER MAR. CALL LIGHT WITHIN REACH, HOURLY ROUNDING, WILL CONTINUE TO MONITOR.
[2019-06-17 12:00] VITALS: BP 149/102
--- NOTE | 2019-06-17 14:16 | NUR ---
Spoke with Pt regarding disposition, PT recommending skilled. Faxed referral to [facility]. Updated Shauna, liaison with [facility]. Awaiting decision to accept. Pt will be medically stable to dc tomorrow.
--- NOTE | 2019-06-17 15:38 | NUR ---
Shauna from [facility] here to assess Pt, during assessment, Pt voiced that he has thoughts of suicide sometimes, but no active plans. Per Shauna, she wants a psych consult prior to being able to accept him. Updated Dr and nurse, jarrett consult placed. CM waiting response from liaison as to if they can accept Pt over the weekend if psych consult comes back fine. Following.
[2019-06-17 19:50] VITALS: BP 140/91
[2019-06-18] VITALS: BP 165/94
[2019-06-18 02:10] LABS: GLYCOHEMOGLOBIN (HGB A1C) 5.2 % (4.8-5.6)
[2019-06-18 04:00] VITALS: BP 159/97
--- NOTE | 2019-06-18 04:31 | NUR ---
ASSUMED CARE OF PT AT 1900. PT IS ALERT AND ORIENTED. VSS. PERRLA. NO COMPLAINTS OF PAIN. NIH IS 8. PT IS IN SINUS RYTHM ON THE TELEMETRY. PT IS RESTING COMFORTABLY IN BED. RESPIRATIONS ARE EVEN AND NONLABORED. WILL CONTINUE TO MONITOR PT.
[2019-06-18 07:30] VITALS: BP 155/106
--- NOTE | 2019-06-18 11:41 | NUR ---
ASSUMED PT CARE ST 0800, AOX4, UP WITH ASSIST, O2 SAT 90'S RA. TRACING SINUS RHYTHM ON TELE. PT COMPLAINS OF HEADACHE. MEDS GIVEN. PT FOR TELEPSYCHE CONSULT. VSS, AM ASSESSMENT CHARTED, HOURLY ROUNDING, WILL CONTINUE TO MONITOR.
[2019-06-18 12:00] VITALS: BP 149/101
[2019-06-18 16:00] VITALS: BP 149/94
[2019-06-19] VITALS: BP 163/94
[2019-06-19 04:00] VITALS: BP 177/109
--- NOTE | 2019-06-19 04:50 | NUR ---
PT SLEPT MOST OF SHIFT. ASSESSMENT DOCUMENTED. LEWIS LOUISE PER E-AUG. IV PATENT. TYLENOL GIVEN FOR SHOULDER PAIN. PT HAD BM THIS SHIFT. PT UP WITH ONE TO BATHROOM. FALL PRECAUTIONS IN PLACE. WILL CONTINUE WITH PLAN OF CARE.
[2019-06-19 08:00] VITALS: BP 161/96
--- NOTE | 2019-06-19 13:42 | NUR ---
ASSUMED PT CARE AT 0800, AOX4, UP SBA, O2 SAT 90'S RA. TRACING SINUS RHYTHM, DENIES PAIN. PT GOAL TO FIND A SKILLED/REHAB PLACEMENT. VSS, AM ASSESSMENT CHARTED, MEDS GIVEN PER MAR, CALL LIGHT WITHIN REACH, WILL CONTINUE TO MONITOR.
[2019-06-19 16:02] VITALS: BP 164/98
[2019-06-20] VITALS (7 sets, daily range): BP systolic 154–166; BP diastolic 99–111
--- NOTE | 2019-06-20 05:28 | NUR ---
PT SLEPT MOST OF SHIFT. ASSESSMENT DOCUMENTED. MEDS GIVEN PER E-AUG. IV PATENT. NO REPORTS OF PAIN. FALL PRECAUTIONS IN PLACE. WILL CONTINUE WITH PLAN OF CARE.
--- NOTE | 2019-06-20 09:50 | NUR ---
ASSUMED CARE OF PT AT 0730. PT SITTING IN BED WAITING FOR BREAFKAST. A&0X4, COMPLAINS OF PAIN TO LEFT SHOULDER-TREATED WITH PRN TYLENOL WITH PARTIAL RELIEF. TRACING SB ON THE COOKER SULFITE. BLOOD PRESSURE ELEVATED THIS AM-160'S/100'S. LISINOPRIL INCREASED FROM 2.5MG TO 10MG PER DR CORNEJO AND CARDIOLOGY CONSULTED FOR ASSIST IN MEDICAL MANAGEMENT. NIH COMPLETED- PT SCORING 5, REFER TO CHARTING. ON RA SAT UPPER 90'S. DENIES ANY SHORTNESS OF BREATH. PT UP WITH 1 ASSIST AND CANE TO BATHROOM-RIGHT SIDED WEAKNESS NOTED. PT GOAL FOR TODAY IS BLOOD PRESSURE MANAGEMENT, CARDIOLOGY CONSULT, INCREASE ACTIVITY AND DISCHARGE PLANNING TO SNF. AM ASSESSMENT CHARTED. MEDICATIONS PER AUG. PT REPOSITIONS SELF. HOURLY ROUNDING OBSERVED. BED IN LOW POSITION. CALL LIGHT WITHIN REACH. WILL CONTINUE PLAN OF CARE.
--- NOTE | 2019-06-20 11:52 | NUR ---
CHIDI sent referrals to [facility] [phone] (fax). [phone] (f). And, [facility] [phone] (f). Laura rivera/Nolan Gannon called to stated they are unable to accept pt.
--- NOTE | 2019-06-20 15:27 | NUR ---
CM faxed skilled referrals to: [facility] p:[phone] f:[phone] [facility] p:[phone] [phone] [facility] p:[phone] f:[phone] [facility] p:[phone] f:[phone] [facility] [place] p:[phone] f:[phone] Awaiting decisions to accept. CM to continue looking for placement.
--- NOTE | 2019-06-20 17:24 | NUR ---
NO ACUTE CHANGES THROUGHOUT SHIFT. REFER TO CHARTING. CARDIOLOGY CONSULT IN PLACE FOR MEDICAL MANAGEMENT. DR HUTCHINSON HERE TO SEE PT. ORDERS RECEIVED TO DC LISINOPRIL, RESTART COZAAR AND DOSE INCREASED TO 50MG, SPIRINOLACTONE AND COREG DOSAGE DECREASED TO 3.125 MG BID. REFER TO EMAR. BLOOD PRESSURE IMPROVING THROUGHOUT SHIFT- NOW RUNNING IN THE 150'S/90'S. AWAITING SNF ACCEPTANCE. PT TO HAVE CXR TOMORROW 06/21. CONTINUES TO TRACE SB/SR ON THE DEHAIRER. ON RA SAT UPPER 90'S. PT DENIES ANY PAIN OR SHORTNESS OF BREATH THIS AFTERNOON. UP TO CHAIR FOR MEALS. WORKED WITH PT AND OT TODAY-TOLERATED WELL. NIH CHARTED. PROGRESSING TOWARDS GOALS. MEDICATIONS PER AUG. PT REPOSITIONS SELF. HOURLY ROUNDING OBSERVED. BED IN LOW POSITION. CALL LIGHT WITHIN REACH. WILL CONTINUE PLAN OF CARE.
[2019-06-21] VITALS: BP 157/95
[2019-06-21 04:00] VITALS: BP 154/87
[2019-06-21 07:45] VITALS: BP 154/108
[2019-06-21] MEDS ORDERED: LIPITOR 40 MG T40 M1 PO (09:54)
[2019-06-21] MEDS ORDERED: ASA5UEC PO (09:54)
[2019-06-21] MEDS ORDERED: ESCITALOPRAM OX10 MG PO (09:54)
--- NOTE | 2019-06-21 10:00 | NUR ---
ASSUMED CARE OF PT AT 0730. PT SITTING AT EDGE OF BED WAITING FOR BREAKFAST. A&0X4, COMPLAINS OF GENERALIZED PAIN TO LEFT SHOULDER. TREATED WITH PRN TYLENOL WITH RELIEF. TRACING SB/SR WITH BBB ON THE LICENSED INSURANCE SALES AGENT. ON RA SAT UPPER 90'S. DENIES ANY SHORTNESS OF BREATH. PT UP WITH 1 ASSIST AND CANE TO BATHROOM- RIGHT SIDED WEAKNESS NOTED. PT GOAL FOR TODAY IS ACCEPTANCE TO SNF AND DISCHARGE PLANNING AND WORK WITH PHYSICAL AND OCCUPATIONAL THERAPY. AM ASSESSMENT CHARTED. MEDICATIONS PER AUG. PT REPOSITIONS SELF. HOURLY ROUNDING OBSERVED. BED IN LOW POSITION. CALL LIGHT WITHIN REACH. WILL CONTINUE PLAN OF CARE.
[2019-06-21 12:02] VITALS: BP 160/90
--- NOTE | 2019-06-21 13:50 | NUR ---
DISCHARGE ORDERS RECEIVED. DISCHARGE INSTRUCTIONS, CARE NOTES AND FOLLOW UP APPTS GIVEN TO PT. PT COMMUNICATES UNDERSTANDING OF DISCHARGE TEACHING. IV AND BITUMEN PLANT OPERATOR REMOVED. PT DISCHARGED WITH ALL BELONGINGS AND PAPERWORK VIA WHEELCHAIR WITH TRANSPORTATION [facility]. REPORT CALLED TO BRYAN AT [facility].
--- NOTE | 2019-06-21 13:57 | NUR ---
HEARD BACK TODAY FROM [facility]OUR[facility]. THEY WOULD CONSIDER PT FOR SNF BUT WOULD NEED TO DO AN ON SITE VISIT. AARON FROM [facility] HERE AND VISITED WITH PT, THEY CAN ACCEPT TO SNF TODAY AND ASSIST PT WITH RESIDENTIAL APT AFTER SNF STAY. SHE MET WITH PT TO EXPLAIN, HE WAS AGREEABLE TO DC TO THERE TODAY. SET UP W/C VAN FOR 3-330P. CHART COPIED AND ORDERS FAXED. RN HAS NUMBER TO CALL REPORT. PT STATED HIS SISTER HAD CALLED HIM AND PLANNED TO VISIT TODAY BUT HE DIDN'T KNOW HOW TO REACH HER
--- NOTE | 2019-06-24 13:50 | CON ---
[address] [address] CONSULTATION Name: JOEY VALLE Room: [address] IN M.R.#: [id number] Admission: 06/15/19 Attend Phys: Prashanth Owen MD Discharge: 06/21/19 Date of : 68 Report #: [id number] THIS REPORT FOR: //name// CC: MEE physician/PCP Prashanth Owen DATE OF SERVICE: 06/15/2019 HISTORY OF PRESENT ILLNESS: This is a 49-year-old male patient who was evaluated by me as a stroke protocol. I initially was contacted by Dr. Sterling, the Emergency Room physician, because this patient had a stroke, which affected the right side of the body and speech difficulty. He had a residual weakness from there. He came in because, according to the history, he became worst around 12 or 12:30. Dr. Sterling was not able to determine what is his baseline and how much worse he has become and apparently no family member came with him. He did a CT and CT angio, which was unremarkable except for chronic changes. I came to Emergency Room and saw the patient. At that time, the patient's stepson had come in. I tried to talk to him, but does not look like he knows that much history either. When I ask him, he indicates that the patient's speech is about the same as it was before. When I ask him how about the weakness, he cannot tell me whether it is same or any different. He said he had a lot of difficulty walking in the baseline since the stroke. He did not know the last time he had a stroke, but he had more than one. Multiple other histories were obtained from the patient's stepson. He indicated that the patient has no place to go because he has been thrown out of the place where he was living. The patient indicated to me that he has agreed for TPA because that will ensure him that he can stay in the hospital. The further history I get is that this patient has a family physician. Neither the patient nor the son can tell me what the name is. They refused to fill his medication because he has not been to them because of financial reason, so he is not taking his medication. I pulled out his old records, it looks like that this patient was here just in the hospital in February. At that time, the patient was admitted with congestive heart failure. He also has renal failure. Renal saw him and they thought it was related to his hypertension, heart failure and the dye he got. Apparently, his ejection fraction was only 20% at that time. This was some of the relevant points of his extensive 14-point review of system. PAST MEDICAL HISTORY: Positive for stroke with right-sided residual weakness. FAMILY HISTORY: Unremarkable. SOCIAL HISTORY: The only person I can get hold of is the patient's stepson. He does not know that much about the patient, but he [place] [address] CONSULTATION Name: JOEY VALLE Room: [address] IN ..#: [id number] Admission: 06/15/19 Attend Phys: Prashanth Owen MD Discharge: 06/21/19 Date of : 68 Report #: [id number] speech is back to the baseline. His record is pretty extensive. His examination was carried out numerous times. He is alert. He is responsive. He can follow simple command. His stepson thinks his speech is back to the baseline. Cranial nerve examination indicates right facial weakness. He can move the right upper and right lower extremity, but he is markedly weak there. His rest of the neurological examination is pretty limited. IMPRESSION: Pretty difficult to form in this patient. He has so many things going on and the management of every one of them is complicated. Some of them are summarized as below. Cerebrovascular accident: He probably extended his cerebrovascular accident. That is because of his uncontrolled hypertension, which may have caused vasospasm. What is the optimal treatment for that is not clear. Initially, he said that the symptoms started about 12:30 and he was inside the window for TPA. When I talked to him, he is not certain about the timing at all. Furthermore, the patient's blood pressure persistently stayed outside the range for TPA. In the Emergency Room, he got labetalol and his diastolic blood pressure actually went up and way outside the range for TPA. After reviewing the record, my equally big concern is that last time he had a renal failure when he had pulmonary edema and cardiac failure. He also got some dye. If we have to give him TPA, we have to continue antihypertensives to lower his blood pressure and since he got the dye again, he may go back to the renal failure again. It will be desirable to keep his blood pressure high, but we will not be able to keep it if we give him TPA. I discussed all his options with him. Initially, he wanted to get the TPA, but subsequently after discussing all his options with him, the plan was to hold TPA because his blood pressure is barely in the range for the TPA now and it was persistently outside the range and the timing of the onset is not clear at all and even if the symptoms started at 12:30, he is barely inside the window by 7 minutes, but it is very clear the timing is not clear. He is under a lot of stress and we do not even know how much worse he is. CT angiogram was reviewed and that does not show any abnormality except for the chronic disease. In this condition, the best will be to continue to monitor him. Keep his blood pressure high, 170-180 systolic will be fine to keep. He needs to be closely watched for any renal problem, which can develop since he got contrast in the Emergency Room. Therefore, he will need some fluids. I talked to Dr. Owen, the admitting doctor, and he is going to give him some fluids. Hopefully, he will not go to congestive heart failure because of that. He did not provide any of those histories before neither did the stepson knew it and the only time that history became apparent when I pulled out the patient's old record [place] [address] CONSULTATION Name: JOEY VALLE Room: [address] [place] [facility].#: [id number] Admission: 06/15/19 Attend Phys: Prashanth Owen MD Discharge: 06/21/19 Date of : 68 Report #: [id number] More than 50 minutes of time was spent taking care of this patient today and majority of that time was spent counseling and coordinating the patient's care. I discussed with him all his options, especially regarding TPA and he understood that very well. As mentioned above, his history was very unclear, it became somewhat clear after I talked to the patient's stepson, but became even more clear after I reviewed his records in the computer and he did not mention any of those. <ELECTRONICALLY SIGNED> By: Marshall Orozco MD 06/24/19 1350 [id number] [id number] Orozco MD /nt
--- NOTE | 2019-06-24 13:56 | CON ---
[address] [address] CONSULTATION Name: JOEY VALLE Room: [address] IN .R.#: [id number] Admission: 06/15/19 Attend Phys: Prashanth Owen MD Discharge: 06/21/19 Date of : 68 Report #: [id number] THIS REPORT FOR: //name// CC: MEE physician/PCP Prashanth Owen CARDIOLOGY CONSULTATION HISTORY OF PRESENT ILLNESS: The patient is a 49-year-old white male who I was asked to see in the hospital today because of his history of cardiomyopathy. The patient states he had a stroke 10 years ago. At the current time, he is on disability. He is not very active. 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 He is from his . He has been living in a hotel who is getting ready to evict him. He was here at [place] in February with shortness of breath and had to be intubated. Echocardiogram showed an ejection fraction only 25%. He subsequently underwent a nuclear stress test in February that showed a fixed inferior defect, felt to be attenuation artifact, but no reversible ischemia, with severe left ventricular systolic dysfunction. He returned to see my nurse practitioner in February and was doing well. He presented to the hospital on 06/15, 4 days ago. Paramedics were called. At 12:00 in the afternoon, he was weak on his right upper and lower extremities. He had some drooping. He felt tremulous. He noticed a headache. He was brought to the hospital and felt to have a possible stroke. Because of his history of heart disease, Cardiology consultation was requested. He denies any recent chest pain, increased shortness of breath, palpitations, syncope, or peripheral edema. PAST MEDICAL HISTORY: He has had previous cholecystectomy, surgery on his right wrist. No history of hypertension, diabetes, hyperlipidemia. MEDICATIONS: Previous medications include Lasix, losartan, spironolactone, carvedilol. ALLERGIES: HE HAS PREVIOUS INTOLERANCE TO HYDROCODONE. FAMILY HISTORY: Negative for heart disease. SOCIAL HISTORY: He is from his . He does smoke half pack of cigarettes a day, uses marijuana occasionally. No alcohol abuse. No IV drug abuse. REVIEW OF SYSTEMS: No history of asthma, peptic ulcer disease, liver disease, kidney disease, cancer, psychiatric illness, chronic skin condition. PHYSICAL EXAMINATION: GENERAL: Revealed a middle-aged male lying in bed, he appeared in no distress. VITAL SIGNS: He had a blood pressure of 140/80, pulse is 90. [place] [address] CONSULTATION Name: JEOY VALLE Room: [address]#: [id number] Admission: 06/15/19 Attend Phys: Prashanth Owen MD Discharge: 06/21/19 Date of : 68 Report #: [id number] HEENT: Mucous members moist. NECK: Veins nondistended. No carotid bruits. CHEST: Clear to auscultation. CARDIOVASCULAR: Regular rate and rhythm. ABDOMEN: Soft. EXTREMITIES: Had no edema. Dorsalis pedis pulse 2+. SKIN: Warm and dry. NEUROLOGIC: Nonfocal. RADIOLOGICAL DATA: His ECG showed a sinus rhythm, left ventricular hypertrophy, repolarization changes. His workup so far, he had a chest x-ray on admission that showed cardiomegaly. No significant pulmonary changes. He had an MRI of the head that showed small-vessel changes, atrophy. He had an MRA of the carotid arteries that showed mild internal carotid stenosis. LABORATORY DATA: Sodium was 142, potassium 3.4, BUN of 11, creatinine 1.1. Liver function studies were normal. BNP 3803. TSH is 0.8. White blood cell count 7.9, hemoglobin 13.6. IMPRESSION AND RECOMMENDATIONS: 1. Dilated cardiomyopathy, asymptomatic. I will continue losartan, spironolactone, and carvedilol. 2. Previous stroke. 3. Tobacco abuse. <ELECTRONICALLY SIGNED> By: Angel Bustamante MD, FACC 06/24/19 1356 1037 [id number] Bustamante MD, FACC /nt
== END 2019-06-21 13:58 | DRG 78 ==
LOC: M.ERS 14:03 → M.ICU 15:37 → M.TBA-ER 15:37 → M.ICU 15:50 → M.2W 19:19
PROVIDERS: Emergency Medicine; Internal Medicine; ADMIT Family Medicine
DX: I67.4 Hypertensive encephalopathy (principal); I13.0 Hypertensive heart and chronic kidney disease with heart failure and stage 1 through stage 4 chronic kidney disease, or unspecified chronic kidney disease; I50.42 Chronic combined systolic (congestive) and diastolic (congestive) heart failure; I69.351 Hemiplegia and hemiparesis following cerebral infarction affecting right dominant side; N18.3 Chronic kidney disease, stage 3 (moderate); F17.210 Nicotine dependence, cigarettes, uncomplicated; F12.90 Cannabis use, unspecified, uncomplicated; F19.11 Other psychoactive substance abuse, in remission; E87.6 Hypokalemia; G43.909 Migraine, unspecified, not intractable, without status migrainosus; F32.9 Major depressive disorder, single episode, unspecified; Z90.49 Acquired absence of other specified parts of digestive tract; Z91.19 Patient's noncompliance with other medical treatment and regimen; Z79.899 Other long term (current) drug therapy; Z88.5 Allergy status to narcotic agent; Z88.8 Allergy status to other drugs, medicaments and biological substances

== ENCOUNTER 2021-02-19 10:43 | Emergency (ER) | payer MEDICARE, MEDICAID ==
[~2021-02-19] VITALS: Ht 185.4 cm; Wt 60.8 kg
[~2021-02-19 10:43] MED LIST changes: +ASA5UEC PO; +ESCITALOPRAM OX10 MG PO; +LIPITOR 40 MG T40 M1 PO
[2021-02-19] MEDS ORDERED: BACLOFEN 10MG T10 MG PO (10:55)
[2021-02-19 12:13] LABS: AMP/METHAMP Negative (Negative); BARBITURATES Negative (Negative); BENZODIAZEPINES Negative (Negative); COCAINE Negative (Negative); METHADONE Negative (Negative); OPIATES Negative (Negative); PCP Negative (Negative); THC POSITIVE (Negative)
[2021-02-19 12:22] LABS: ABSOLUTE BASOPHILS 0.1 thou/uL (0.0-0.2); ABSOLUTE EOSINOPHILS 0.4 thou/uL (0.0-0.7); ABSOLUTE LYMPHOCYTES 1.6 thou/uL (0.8-5.3); ABSOLUTE MONOCYTES 1.1 thou/uL (0.0-1.2); ABSOLUTE NEUTROPHILS 12.6 thou/uL (1.6-8.1); BASOPHILS 0.5 %; EOSINOPHILS 2.6 %; HEMATOCRIT 45.2 % (42.0-52.0); HEMOGLOBIN 14.5 gm/dL (14.0-18.0); LYMPHOCYTES 10.2 %; MCH 31.2 pg (26.0-34.0); MCHC 32.2 g/dL (28.0-37.0); MCV 96.8 fL (80.0-100.0); MONOCYTES 6.8 %; MPV 9.4 fl. (7.2-11.1); NUCLEATED RBCS 0 /100WBC; PLATELET COUNT* 227 thou/uL (150-400); POLYS 79.9 %; RBC 4.67 mil/uL (4.50-6.00); RDW-CV 14.1 % (10.5-14.5); WBC 15.8 thou/uL (4.0-11.0)
[2021-02-19 12:30] LABS: CALCIUM 8.7 mg/dL (8.5-10.1); CREATININE 1.5 mg/dL (0.6-1.3)
[2021-02-19 12:35] LABS: ALBUMIN 3.3 g/dL (3.4-5.0); TOTAL BILIRUBIN 0.4 mg/dL (<0.1-1.0); TOTAL PROTEIN 6.9 g/dL (6.4-8.2)
[2021-02-19] MEDS ORDERED: PREDNISONE 20 M20 M1 PO (12:35)
[2021-02-19] MEDS ORDERED: ZPAK PO (12:35)
[2021-02-19 12:59] VITALS: BP 91/62
--- NOTE | 2021-02-19 15:54 | EKG ---
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: : 1970 Requested By: Oleg Escalera Order Number: [id number] MD: Joey Curtis Measurements Intervals Carter Rate: 56 P: 58 [place]: 148 QRS: 51 QRSD: 110 T: 93 QT: 413 QTc: 399 Interpretive Statements Sinus rhythm ST elev, probable normal early repol pattern Compared to ECG 06/15/2019 14:46:30 Atrial abnormality no longer present Intraventricular conduction delay is less pronounced Left ventricular hypertrophy no longer present ST (T wave) deviation is less prominent Electronically Signed On 02-19-2021 15:54:39 CDT by Joey Curtis [email or web address] <ELECTRONICALLY SIGNED> By: Joey Curtis MD, FAC 02/19/21 1554 1148 1148 Joey Curtis MD, FAC /EPI
== END 2021-02-19 13:00 | disposition home or self-care (01) ==
LOC: M.ERS 10:43
PROVIDERS: Family Medicine
DX: R55 Syncope and collapse (principal); J18.9 Pneumonia, unspecified organism; I10 Essential (primary) hypertension; F19.11 Other psychoactive substance abuse, in remission; F17.210 Nicotine dependence, cigarettes, uncomplicated; Z90.49 Acquired absence of other specified parts of digestive tract; Z79.82 Long term (current) use of aspirin; Z79.1 Long term (current) use of non-steroidal anti-inflammatories (NSAID); Z79.899 Other long term (current) drug therapy; Z88.5 Allergy status to narcotic agent; Z88.8 Allergy status to other drugs, medicaments and biological substances